=== PATIENT | female | born 1930 | race Caucasian/White ===

== ENCOUNTER 2018-01-18 18:13 | Inpatient (IN) | payer OTHER, MEDICARE ==
[~2018-01-18] VITALS: Ht 170.2 cm; Wt 71.6 kg
[~2018-01-18 18:13] MED LIST: ASPI81TA82 PO; ESTR1TAB PO; FISH1000 PO; GLUC500C56 PO; HYDR-2768 PO; ONDA1TAB16 PO; SYNT125T PO; TAB-TAB PO; TRAM50 PO; VIT250TA PO; VITA400C59 OR; VITA400C70 PO
[2018-01-18 18:32] VITALS: BP 160/80; PULSE 92; RESP 17; TEMP 99; O2SAT 96
[2018-01-18] MEDS ORDERED: VITA250C3 CHEW (18:49)
[2018-01-18] MEDS ORDERED: PRED20 PO (18:49)
[2018-01-18] MEDS ORDERED: ASPI81CH7 CHEW (18:49)
[2018-01-18] MEDS ORDERED: LISI10TA3 PO (18:49)
[2018-01-18] MEDS ORDERED: LEVO.15 PO (18:49)
[2018-01-18] MEDS ORDERED: SODIUM CHLORIDE 0.9% FLUSH 10 ML FLUSH IV FLUSH PRN ×2 (19:15→23:15)
[2018-01-18] MEDS ORDERED: diphenhydrAMINE HCL 50 MG/ML VIAL IV PUSH ONE (19:15)
[2018-01-18] MEDS ORDERED: methylPREDNISolone SOD SUCC 125 MG/2 ML VIAL IV PUSH ONE (19:15)
[2018-01-18] MEDS ORDERED: FAMOTIDINE 20 MG/2 ML VIAL IV PUSH ONE (19:15)
[2018-01-18 19:24] LABS: AUTOMATED NEUTROPHIL # 4.9 TH/MM3 (1.8-7.7); BASOPHIL % 0.6 % (0.0-2.0); EOSINOPHIL % 0.1 % (0.0-4.0); HEMATOCRIT 38.1 % (35.0-46.0); HEMOGLOBIN 12.5 GM/DL (11.6-15.3); LYMPHOCYTE # 0.5 TH/MM3 (1.0-4.8); MEAN CELL VOLUME 94.5 FL (80.0-100.0); MEAN CORPUSCULAR HGB CONC 32.8 % (32.0-36.0); MEAN PLATELET VOLUME 8.6 FL (7.0-11.0); MONO % 0.6 % (0.0-8.0); NEUT % 88.7 % (16.0-70.0); PLATELET COUNT 297 TH/MM3 (150-450); RED BLOOD COUNT 4.03 MIL/MM3 (4.00-5.30); RED CELL DISTRIBUTION WIDTH 11.5 % (11.6-17.2); WHITE BLOOD COUNT 5.4 TH/MM3 (4.0-11.0)
[2018-01-18 19:30] LABS: CHLORIDE 105 MEQ/L (98-107); SODIUM (NA) 138 MEQ/L (136-145)
[2018-01-18 19:33] LABS: CALCIUM 9.1 MG/DL (8.5-10.1)
[2018-01-18 19:34] LABS: ALBUMIN 3.2 GM/DL (3.4-5.0); BICARBONATE 23.1 MEQ/L (21.0-32.0); BLOOD UREA NITROGEN 30 MG/DL (7-18); GLUCOSE,RANDOM 253 MG/DL (74-106)
[2018-01-18 19:37] LABS: ALT (GPT) 16 U/L (10-53); AST (GOT) 15 U/L (15-37); GLOMERULAR FILTRATION RATE 43 ML/MIN (>89)
[2018-01-18 19:38] LABS: TOTAL BILIRUBIN ADULT 0.1 MG/DL (0.2-1.0)
[2018-01-18 19:39] LABS: TOTAL PROTEIN 7.5 GM/DL (6.4-8.2)
[2018-01-18 19:40] LABS: ALKALINE PHOSPHATASE 65 U/L (45-117)
[2018-01-18 20:09] VITALS: BP 198/96; PULSE 76; RESP 20; O2SAT 98; O2SAT 99
[2018-01-18] MEDS ORDERED: ALPRAZolam 0.25 MG TAB PO ONE (20:45)
--- NOTE | 2018-01-18 20:49 | PD ---
HPI Chief Complaint: Edema Time Seen by Provider: 18:58 Travel History International Travel<30 days: No Contact w/Intl Traveler<30days: No Traveled to known affect area: No History of Present Illness HPI This is an 87-year-old female who presents to the emergency department with swelling of her face that started this morning and has progressively been getting worse. Initially she only had some swelling on the right side of her face, constant, moderate severity. She received a dose of steroids at an urgent care this morning. It resolved initially but then it has increased and worsened and now it involves the left side of the face. She denies any changes in her voice, difficulty breathing or difficulty swallowing. The patient recently restarted her lisinopril 3 days ago. PFSH Past Medical History Cancer: No Cardiovascular Problems: No Diabetes: No Diminished Hearing: No Endocrine: Yes Gastrointestinal Disorders: Yes (DIVERTICULITIS ) Genitourinary: No Hepatitis: No Hiatal Hernia: No Hypertension: Yes Immune Disorder: No Implanted Vascular Access Dvce: Yes Medical other: No Musculoskeletal: No Neurologic: No Psychiatric: No Reproductive: No Respiratory: No Thyroid Disease: Yes (ORAL THYROID SUPPLEMENT ) Tetanus Vaccination: Unknown ?: Not Past Surgical History Abdominal Surgery: No AICD: No Appendectomy: Yes Body Medical Devices: BHUPINDER. BREAST (SALINE) Cardiac Surgery: No Section: Yes Cholecystectomy: Yes Ear Surgery: No Endocrine Surgery: No Eye Surgery: No Gynecologic Surgery: Yes ( BLADDER SUSP) Hysterectomy: Yes Joint Replacement: No Neurologic Surgery: No Oral Surgery: Yes (T & A) Pacemaker: No Thoracic Surgery: No Other Surgery: Yes Social History Alcohol Use: No Tobacco Use: No Substance Use: No Allergies-Medications (Allergen,Severity, Reaction): Coded Allergies: No Known Allergies (Unverified Adverse Reaction, Unknown, 01/18/18) Reported Meds & Prescriptions Reported Meds & Active Scripts Active Reported Prednisone 20 Mg Tab 20 Mg PO DIRECTED Take 60 MG daily x 4 days, then 40 MG x 4 days, then 20 MG daily x 4 days. Synthroid (Levothyroxine Sodium) 150 Mcg Tab 150 Mcg PO DAILY Lisinopril 10 Mg Tab 10 Mg PO DAILY Aspirin Children's (Aspirin) 81 Mg Chew 81 Mg CHEW DAILY Vitamin C (Ascorbic Acid) 250 Mg Chew 250 Mg CHEW DAILY Review of Systems Except as stated in HPI: all other systems reviewed are Neg Physical Exam Narrative GENERAL:Well appearing, no acute distress SKIN: Focused skin assessment warm and dry. HEAD: Atraumatic. Normocephalic. EYES: Pupils equal and round. No injection or drainage. ENT: Edema of the right and left lower face anterior to the mandible with edema of the tongue and some edema of the upper lip. Normal-appearing posterior pharynx, uvula is normal, normal voice NECK: Trachea midline. CARDIOVASCULAR: Regular rate and rhythm. No murmur appreciated. RESPIRATORY: Clear to auscultation. Breath sounds equal bilaterally. GASTROINTESTINAL: Abdomen soft, non-tender, nondistended. MUSCULOSKELETAL: No obvious deformities. NEUROLOGICAL: Awake and alert. No obvious cranial nerve deficits. Moving all extremities. PSYCHIATRIC: Appropriate mood and affect; insight and judgment normal. Data Data Last Documented VS Vital Signs Date Time Temp Pulse Resp B/P (MAP) Pulse Ox O2 Delivery O2 Flow Rate FiO2 01/18/18 18:40 17 96 Room Air 01/18/18 18:32 99.0 92 160/80 (106) Orders Orders Complete Blood Count With Diff (01/18/18 19:10) Comprehensive Metabolic Panel (01/18/18 19:10) ^ Insert Iv (01/18/18 19:10) Methylprednisolone So Succ Inj (Solumedr (01/18/18 19:15) Diphenhydramine Inj (Benadryl Inj) (01/18/18 19:15) Ecg Monitoring (01/18/18 19:10) Iv Access Insert/Monitor (01/18/18 19:10) Oximetry (01/18/18 19:10) Famotidine Inj (Pepcid Inj) (01/18/18 19:15) Sodium Chloride 0.9% Flush (Ns Flush) (01/18/18 19:15) Admit Order (Ed Use Only) (01/18/18 20:01) Labs Laboratory Tests Test 01/18/18 19:00 White Blood Count 5.4 TH/MM3 Red Blood Count 4.03 MIL/MM3 Hemoglobin 12.5 GM/DL Hematocrit 38.1 % Mean Corpuscular Volume 94.5 FL Mean Corpuscular Hemoglobin 31.0 PG Mean Corpuscular Hemoglobin Concent 32.8 % Red Cell Distribution Width 11.5 % Platelet Count 297 TH/MM3 Mean Platelet Volume 8.6 FL Neutrophils (%) (Auto) 88.7 % Lymphocytes (%) (Auto) 10.0 % Monocytes (%) (Auto) 0.6 % Eosinophils (%) (Auto) 0.1 % Basophils (%) (Auto) 0.6 % Neutrophils # (Auto) 4.9 TH/MM3 Lymphocytes # (Auto) 0.5 TH/MM3 Monocytes # (Auto) 0.0 TH/MM3 Eosinophils # (Auto) 0.0 TH/MM3 Basophils # (Auto) 0.0 TH/MM3 CBC Comment DIFF FINAL Differential Comment Blood Urea Nitrogen 30 MG/DL Creatinine 1.20 MG/DL Random Glucose 253 MG/DL Total Protein 7.5 GM/DL Albumin 3.2 GM/DL Calcium Level 9.1 MG/DL Alkaline Phosphatase 65 U/L Aspartate Amino Transf (AST/SGOT) 15 U/L Alanine Aminotransferase (ALT/SGPT) 16 U/L Total Bilirubin 0.1 MG/DL Sodium Level 138 MEQ/L Potassium Level 4.6 MEQ/L Chloride Level 105 MEQ/L Carbon Dioxide Level 23.1 MEQ/L Anion Gap 10 MEQ/L Estimat Glomerular Filtration Rate 43 ML/MIN MDM Medical Decision Making Medical Screen Exam Complete: Yes Emergency Medical Condition: Yes Interpretation(s) Mild renal insufficiency Hyperglycemia Differential Diagnosis Angioedema, anaphylaxis, allergic reaction Narrative Course This is an 87-year-old female who presents to the emergency department with facial swelling that has been worsening throughout the day. On exam she appears to have angioedema which is affecting her tongue and lower face. She has a normal voice and no obvious involvement of the posterior pharynx at this time. Patient was given IV Solu-Medrol and Benadryl. She will be admitted to the intensive care unit at the [facility] for close monitoring. I suspect the etiology is she recently restarted her lisinopril 4 days ago. Critical Care Narrative Aggregate critical care time was 35 minutes. Time to perform other separately billable procedures was not included in the critical care time. My time did not include minutes spent treating any other patients simultaneously or on activities that did not directly contribute to the patient's treatment. The services I provided to this patient were to treat and/or prevent clinically significant deterioration that could result in: Disability, I provided critical care services requiring my management, as noted below: Chart data review, documentation time, medication orders and management, vital sign assessments/reviewing monitor data, ordering and reviewing lab tests, ordering and interpreting/reviewing x-rays and diagnostic studies, care of the patient and discussion of the patient with the admitting physicians. 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
[2018-01-18 21:03] VITALS: BP 161/90; PULSE 82; RESP 20; O2SAT 95
[2018-01-18 21:45] VITALS: BP 170/81; PULSE 77; PULSE 78; RESP 26; TEMP 98.4; O2SAT 94
[2018-01-18] MEDS ORDERED: DIPH-201 PO (22:49)
[2018-01-18] MEDS: SODIUM CHLOR 0.9% 1000 ML INJ 1,000 ML IV SCH (23:06)
[2018-01-18] MEDS ORDERED: TEMAZEPAM 15 MG CAP PO PRN (23:15)
[2018-01-18] MEDS ORDERED: BISACODYL 10 MG SUPP RECTAL PRN (23:15)
[2018-01-18] MEDS: HEPARIN SODIUM - SQ 10,000 UNITS/ML VIAL SQ SCH (23:15)
[2018-01-18] MEDS ORDERED: ONDANSETRON HCL 4 MG/2 ML VIAL IV PUSH PRN (23:15)
[2018-01-18] MEDS ORDERED: SENNOSIDES 8.6 MG TAB PO PRN (23:15)
[2018-01-18] MEDS ORDERED: ACETAMINOPHEN 325 MG TAB PO PRN (23:15)
[2018-01-18] MEDS ORDERED: MAGNESIUM HYDROXIDE SUSP 30 ML CUP PO PRN (23:15)
[2018-01-18] MEDS ORDERED: LACTULOSE SYRUP 20 GM/30 ML CUP PO PRN (23:15)
[2018-01-18] MEDS ORDERED: NURSING INFORMATION XX SCH (23:15)
[2018-01-18] MEDS ORDERED: CHLORHEXIDINE GLUCONATE 2 % 1 PACK (2 CLOTHS)(extra cloths) TOPICAL PRN (23:15)
[2018-01-18] MEDS ORDERED: RESP: ALBUTEROL 2.5 MG/IPRATROPIUM 0.5 MG NEB (PRN) INH (23:15)
[2018-01-18] MEDS ORDERED: CHLORHEXIDINE GLUCONATE 2 % 1 PACK (2 CLOTHS) TOP PRN (23:15)
--- NOTE | 2018-01-18 23:26 | HHI.HP ---
HPI Service Critical Care Medicine Primary Care Physician Arron Brown MD Admission Diagnosis angioedema Diagnosis: Travel History International Travel<30 Days: No Contact w/Intl Traveler <30 Da: No Traveled to Known Affected Are: No History of Present Illness 87-year-old female presents with swelling of her face that started this morning and has progressively been getting worse. Initially she only had some swelling on the right side of her face, constant, moderate severity. She received a dose of steroids at an urgent care this morning. It resolved initially but then it has increased and worsened and now it involves the left side of the face. She denies any changes in her voice, difficulty breathing or difficulty swallowing. The patient recently restarted her lisinopril 3 days ago. Review of Systems Constitutional: DENIES: Diaphoretic episodes, Fatigue, Fever, Weight gain, Weight loss, Chills, Dizziness, Change in appetite, Night Sweats Endocrine: DENIES: Abnorml menstrual pattern, Heat/cold intolerance, Polydipsia , Polyuria, Polyphagia Eyes: DENIES: Blurred vision, Diplopia, Eye inflammation, Eye pain, Vision loss , Photosensitivity, Double Vision Ears, nose, mouth, throat: DENIES: Tinnitus, Hearing loss, Vertigo, Nasal discharge, Oral lesions, Throat pain, Hoarseness, Ear Pain, Running Nose, Epistaxis, Sinus Pain, Toothache, Odynophagia Respiratory: DENIES: Apneas, Cough, Snoring, Wheezing, Hemoptysis, Sputum production, Shortness of breath Cardiovascular: DENIES: Chest pain, Palpitations, Syncope, Dyspnea on Exertion , PND, Lower Extremity Edema, Orthopnea, Claudication Gastrointestinal: DENIES: Abdominal pain, Black stools, Bloody stools, Constipation, Diarrhea, Nausea, Vomiting, Difficulty Swallowing, Anorexia Genitourinary: DENIES: Abnormal vaginal bleeding, Dysmenorrhea, Dyspareunia, Sexual dysfunction, Urinary frequency, Urinary incontinence, Urgency, Hematuria , Dysuria, Nocturia, Vaginal discharge Musculoskeletal: DENIES: Joint pain, Muscle aches, Stiffness, Joint Swelling, Back pain, Neck pain Integumentary: DENIES: Abnormal pigmentation, Pruritus, Rash, Nail changes, Breast masses, Breast skin changes, Nipple discharge Hematologic/lymphatic: DENIES: Bruising, Lymphadenopathy Immunologic/allergic: DENIES: Eczema, Urticaria Neurologic: DENIES: Abnormal gait, Headache, Localized weakness, Paresthesias, Seizures, Speech Problems, Tremor, Poor Balance Psychiatric: DENIES: Anxiety, Confusion, Mood changes, Depression, Hallucinations, Agitation, Suicidal Ideation, Homicidal Ideation, Delusions Past Family Social History Allergies: Coded Allergies: lisinopril (Verified Allergy, Severe, ANGIOEDEMA, 01/18/18) Past Medical History Cyst on ovary Diverticulitis Irregular heartbeat Osteoporosis Rectal prolapse Hypothyroidism Pelvic mass Past Surgical History Appendectomy Tonsillectomy Colonoscopy 2013 Bladder surgery 1997 Hemorrhoid surgery 1977 Hysterectomy in 1973 section in 1960 Reported Medications Reported Meds & Active Scripts Active Reported Sleep-Aid (Diphenhydramine HCl) 25 Mg Capsule 1 Tab PO HS Prednisone 20 Mg Tab 20 Mg PO DIRECTED Take 60 MG daily x 4 days, then 40 MG x 4 days, then 20 MG daily x 4 days. Synthroid (Levothyroxine Sodium) 150 Mcg Tab 150 Mcg PO DAILY Aspirin Children's (Aspirin) 81 Mg Chew 81 Mg CHEW DAILY Vitamin C (Ascorbic Acid) 250 Mg Chew 250 Mg CHEW DAILY Active Ordered Medications Current Medications Medications (Trade) Dose Ordered Sig/Kendrick Route PRN Reason Start Time Stop Time Status Last Admin Dose Admin Sodium Chloride (NS Flush) 2 ml UNSCH PRN IV FLUSH FLUSH AFTER USING IV ACCESS 01/18/18 19:15 Miscellaneous Information ([facility] Nursing Information) Patient in critical care unit? Ass... [id number] .XX 01/18/18 23:15 Chlorhexidine Gluconate (Chlorhexidine 2% Cloth) 3 pack DAILY@04 TOPICAL 01/19/18 04:00 01/23/18 04:01 Chlorhexidine Gluconate (Chlorhexidine 2% Cloth) 3 pack UNSCH PRN TOPICAL HYGIENIC CARE 01/18/18 23:15 01/23/18 23:04 Aspirin (Aspirin Chew) 81 mg DAILY CHEW 01/19/18 09:00 Levothyroxine Sodium (Synthroid) 150 mcg DAILY@0700 PO 01/19/18 07:00 Prednisone (Deltasone) 20 mg DAILY PO 01/19/18 09:00 Ascorbic Acid (Vitamin C) 250 mg DAILY PO 01/19/18 09:00 Non-Formulary Medication 1 tab HS PO 01/19/18 21:00 UNV Family History No family history significant of early coronary artery disease or malignancy Social History Never smoked, alcohol socially, no illicit drug abuse Physical Exam Vital Signs Vital Signs Date Time Temp Pulse Resp B/P (MAP) Pulse Ox O2 Delivery O2 Flow Rate FiO2 01/18/18 21:45 Nasal Cannula 2.00 01/18/18 21:45 77 01/18/18 21:45 98.4 78 26 170/81 (110) 94 01/18/18 21:09 01/18/18 21:03 82 20 161/90 (113) 95 Room Air 01/18/18 20:09 76 20 198/96 (130) 99 Room Air 01/18/18 20:09 98 Room Air 01/18/18 18:40 17 96 Room Air 01/18/18 18:32 99.0 92 17 160/80 (106) 96 Physical Exam GENERAL: Well-nourished, well-developed patient. SKIN: Warm and dry. HEAD: Normocephalic. EYES: No scleral icterus. No injection or drainage. NECK: Supple, trachea midline. No JVD or lymphadenopathy. CARDIOVASCULAR: Regular rate and rhythm without murmurs, gallops, or rubs. RESPIRATORY: Breath sounds equal bilaterally. No accessory muscle use. GASTROINTESTINAL: Abdomen soft, non-tender, nondistended. MUSCULOSKELETAL: No cyanosis, or edema. BACK: Nontender without obvious deformity. NEURO EXAM: GCS: 15 Mental Status: The patient is alert and oriented to person, place, and time with normal speech. Cranial Nerves: Visual acuity intact bilaterally. Visual francisco normal in all quadrants. Pupils are round, reactive to light. Extraocular movements are intact without ptosis. Hearing is normal bilaterally. Voice is normal. Tongue protrudes midline and moves symmetrically. Reflexes: Biceps, patellar, and Achilles are 2/4 bilaterally. No clonus. Sensation: Sensation is intact bilaterally to pain and light touch. Two-point discrimination is intact. Motor: Good muscle tone. Strength is 5/5 bilaterally. Cerebellar: Amnisb-st-usof and wwuf-[id number] test normal bilaterally. Laboratory Laboratory Tests Test 01/18/18 19:00 01/18/18 22:05 White Blood Count 5.4 Red Blood Count 4.03 Hemoglobin 12.5 Hematocrit 38.1 Mean Corpuscular Volume 94.5 Mean Corpuscular Hemoglobin 31.0 Mean Corpuscular Hemoglobin Concent 32.8 Red Cell Distribution Width 11.5 Platelet Count 297 Mean Platelet Volume 8.6 Neutrophils (%) (Auto) 88.7 Lymphocytes (%) (Auto) 10.0 Monocytes (%) (Auto) 0.6 Eosinophils (%) (Auto) 0.1 Basophils (%) (Auto) 0.6 Neutrophils # (Auto) 4.9 Lymphocytes # (Auto) 0.5 Monocytes # (Auto) 0.0 Eosinophils # (Auto) 0.0 Basophils # (Auto) 0.0 CBC Comment DIFF FINAL Differential Comment Blood Urea Nitrogen 30 Creatinine 1.20 Random Glucose 253 Total Protein 7.5 Albumin 3.2 Calcium Level 9.1 Alkaline Phosphatase 65 Aspartate Amino Transf (AST/SGOT) 15 Alanine Aminotransferase (ALT/SGPT) 16 Total Bilirubin 0.1 Sodium Level 138 Potassium Level 4.6 Chloride Level 105 Carbon Dioxide Level 23.1 Anion Gap 10 Estimat Glomerular Filtration Rate 43 Result Diagram: 01/18/18189901/18/181899 Caprini VTE Risk Assessment Caprini VTE Risk Assessment: Mod/High Risk (score >= 2) Caprini Risk Assessment Model Point Value = 1 Point Value = 2 Point Value = 3 Point Value = 5 Age 41-60 Minor surgery BMI > 25 kg/m2 Swollen legs Varicose veins or History of unexplained or recurrent spontaneous Oral contraceptives or hormone replacement Sepsis (< 1 month) Serious lung disease, including pneumonia (< 1 month) Abnormal pulmonary function Acute myocardial infarction Congestive heart failure (< 1 month) History of inflammatory bowel disease Medical patient at bed rest Age 61-74 Arthroscopic surgery Major open surgery (> 45 min) Laparoscopic surgery (> 45 min) Malignancy Confined to bed (> 72 hours) Immobilizing plaster cast Central venous access Age >= 75 History of VTE Family history of VTE Factor V Leiden Prothrombin [id number] Lupus anticoagulant Anticardiolipin antibodies Elevated serum homocysteine Heparin-induced thrombocytopenia Other congenital or acquired thrombophilia Stroke (< 1 month) Elective arthroplasty Hip, pelvis, or leg fracture Acute spinal cord injury (< 1 month) Prophylaxis Regimen Total Risk Factor Score Risk Level Prophylaxis Regimen 0-1 Low Early ambulation 2 Moderate Order ONE of the following: *Sequential Compression Device (SCD) *Heparin 5000 units SQ BID 3-4 Higher Order ONE of the following medications: *Heparin 5000 units SQ TID *Enoxaparin/Lovenox 40 mg SQ daily (WT < 150 kg, CrCl > 30 mL/min) *Enoxaparin/Lovenox 30 mg SQ daily (WT < 150 kg, CrCl > 10-29 mL/min) *Enoxaparin/Lovenox 30 mg SQ BID (WT < 150 kg, CrCl > 30 mL/min) AND/OR *Sequential Compression Device (SCD) 5 or more Highest Order ONE of the following medications: *Heparin 5000 units SQ TID (Preferred with Epidurals) *Enoxaparin/Lovenox 40 mg SQ daily (WT < 150 kg, CrCl > 30 mL/min) *Enoxaparin/Lovenox 30 mg SQ daily (WT < 150 kg, CrCl > 10-29 mL/min) *Enoxaparin/Lovenox 30 mg SQ BID (WT < 150 kg, CrCl > 30 mL/min) AND *Sequential Compression Device (SCD) Assessment and Plan Assessment and Plan Angioedema -DC lisinopril -IV steroids -H1 H2 antagonists -Monitor in the ICU for an airway Hypertension -Labetalol and clonidine as needed to keep SBP less than 160 Hypothyroidism -Continue Synthroid DVT GI prophylaxis -Osvaldo's and SCDs -Subcu heparin -Pepcid Critical Care: The total critical care time was 35 minutes. Time to perform other separately billable procedures was not included in the critical care time. Julio Cesar Benoit MD January 18, 2018 23:26
[2018-01-18] MEDS ORDERED: LABETALOL HCL 100 MG/20 ML VIAL IV PUSH PRN (23:30)
[2018-01-18] MEDS: diphenhydrAMINE HCL 50 MG/ML VIAL IM SCH (23:30)
[2018-01-18] MEDS ORDERED: cloNIDine HCL 0.1 MG TAB PO PRN (23:30)
[2018-01-18] MEDS: DEXAMETHASONE SOD PHOS 4 MG/ML VIAL IV PUSH SCH (23:39)
[2018-01-19] VITALS (16 sets, daily range): BP systolic 119–172; BP diastolic 58–89; PULSE 57–88; RESP 16–21; TEMP 97.1–98.6; O2SAT 95–96
[2018-01-19] MEDS: diphenhydrAMINE HCL 50 MG/ML VIAL IM SCH ×3 (03:30→11:27)
[2018-01-19] MEDS: CHLORHEXIDINE GLUCONATE 2 % 1 PACK (2 CLOTHS) TOP SCH (03:30)
[2018-01-19] MEDS: CHLORHEXIDINE GLUCONATE 2 % 1 PACK (2 CLOTHS)(taper/protocol) TOPICAL SCH (03:31)
[2018-01-19 04:21] LABS: AUTOMATED NEUTROPHIL # 6.6 TH/MM3 (1.8-7.7); HEMATOCRIT 35.3 % (35.0-46.0); LYMPH % 11.4 % (9.0-44.0); LYMPHOCYTE # 0.9 TH/MM3 (1.0-4.8); MEAN CELL VOLUME 94.6 FL (80.0-100.0); MEAN CORPUSCULAR HEMOGLOBIN 32.3 PG (27.0-34.0); MEAN CORPUSCULAR HGB CONC 34.1 % (32.0-36.0); MEAN PLATELET VOLUME 8.5 FL (7.0-11.0); MONO % 1.2 % (0.0-8.0); MONOCYTE # 0.1 TH/MM3 (0-0.9); NEUT % 87.4 % (16.0-70.0); PLATELET COUNT 259 TH/MM3 (150-450); RED BLOOD COUNT 3.73 MIL/MM3 (4.00-5.30); RED CELL DISTRIBUTION WIDTH 12.7 % (11.6-17.2); WHITE BLOOD COUNT 7.5 TH/MM3 (4.0-11.0)
[2018-01-19 04:50] LABS: ALBUMIN 2.9 GM/DL (3.4-5.0); AST (GOT) 16 U/L (15-37); BICARBONATE 24.5 MEQ/L (21.0-32.0); BLOOD UREA NITROGEN 30 MG/DL (7-18); CALCIUM 8.4 MG/DL (8.5-10.1); CHLORIDE 108 MEQ/L (98-107); CREATININE 1.05 MG/DL (0.50-1.00); GLOMERULAR FILTRATION RATE 50 ML/MIN (>89); GLUCOSE,RANDOM 165 MG/DL (74-106); SODIUM (NA) 141 MEQ/L (136-145)
[2018-01-19 04:53] LABS: PROTHROMBIN TIME - PATIENT 10.1 SEC (9.8-11.6)
[2018-01-19 04:54] LABS: ALKALINE PHOSPHATASE 56 U/L (45-117); ALT (GPT) 16 U/L (10-53); PHOSPHORUS 3.4 MG/DL (2.5-4.9); TOTAL BILIRUBIN ADULT 0.2 MG/DL (0.2-1.0); TOTAL PROTEIN 6.7 GM/DL (6.4-8.2)
[2018-01-19] MEDS: DEXAMETHASONE SOD PHOS 4 MG/ML VIAL IV PUSH SCH ×4 (06:00→23:42)
[2018-01-19] MEDS: LEVOTHYROXINE SODIUM 150 MCG TAB PO SCH (06:10)
[2018-01-19] MEDS: SODIUM CHLORIDE 0.9% FLUSH 10 ML FLUSH IV FLUSH SCH ×2 (09:00→20:38)
[2018-01-19] MEDS ORDERED: predniSONE 20 MG TAB PO SCH (09:00)
[2018-01-19] MEDS ORDERED: FAMOTIDINE 20 MG/2 ML VIAL IV PUSH SCH ×2 (09:00)
[2018-01-19] MEDS: HEPARIN SODIUM - SQ 10,000 UNITS/ML VIAL SQ SCH ×3 (09:55→23:45)
[2018-01-19] MEDS: ASPIRIN 81 MG CHEW TAB CHEW SCH (09:56)
[2018-01-19] MEDS: DOCUSATE SODIUM 50 MG/SENNA 8.6 MG TAB PO SCH ×2 (09:56→20:37)
[2018-01-19] MEDS: ASCORBIC ACID 500 MG TAB PO SCH (09:56)
[2018-01-19] MEDS: SODIUM CHLOR 0.9% 1000 ML INJ 1,000 ML IV SCH ×2 (11:01→23:41)
--- NOTE | 2018-01-19 13:53 | HHI.PR ---
Subjective Remarks Facial swelling and lip swelling better, almost at baseline. No shortness of breath or wheezing. No stridor. Objective Vitals Vital Signs Date Time Temp Pulse Resp B/P (MAP) Pulse Ox O2 Delivery O2 Flow Rate FiO2 01/19/18 12:00 79 01/19/18 11:00 98.6 68 20 119/60 (79) 96 01/19/18 10:00 79 01/19/18 08:00 98.6 81 20 162/81 (108) 96 01/19/18 08:00 79 01/19/18 06:00 75 01/19/18 04:15 96 Nasal Cannula 2.00 01/19/18 04:00 72 01/19/18 03:00 82 149/73 (98) 01/19/18 02:00 83 01/19/18 01:00 76 153/74 (100) 01/19/18 00:00 98.6 88 21 172/89 (116) 96 01/19/18 00:00 82 01/18/18 21:45 Nasal Cannula 2.00 01/18/18 21:45 77 01/18/18 21:45 98.4 78 26 170/81 (110) 94 01/18/18 21:09 01/18/18 21:03 82 20 161/90 (113) 95 Room Air 01/18/18 20:09 76 20 198/96 (130) 99 Room Air 01/18/18 20:09 98 Room Air 01/18/18 18:40 17 96 Room Air 01/18/18 18:32 99.0 92 17 160/80 (106) 96 I/O 01/18/18 01/18/18 01/18/18 01/19/18 01/19/18 01/19/18 07:00 15:00 23:00 07:00 15:00 23:00 Intake Total 546 ml Balance 546 ml Intake Oral 0 ml IV Total 546 ml # Voids 3 # Bowel Movements 2 Result Diagram: 01/19/18 0335 01/19/18 0335 Objective Remarks GENERAL: Well-nourished, well-developed patient. Still with mild facial swelling and lip swelling. Speech is normal. NECK: No stridor. CARDIOVASCULAR: Regular rate and rhythm without murmurs, gallops, or rubs. RESPIRATORY: Breath sounds equal bilaterally. No accessory muscle use. GASTROINTESTINAL: Abdomen soft, non-tender, nondistended. MUSCULOSKELETAL: No cyanosis, or edema. Alert awake and oriented 3, no focal deficits. A/P Assessment and Plan This is an 87-year-old female who presented with facial edema likely angioedema from lisinopril Angioedema -DC lisinopril, continue steroids, continue H2 and H1 antagonist, switch everything to oral. May transfer to [facility]. Hypertension -Start Norvasc tomorrow if with increasing blood pressure. Hypothyroidism -Continue Synthroid DVT prophylaxis: Heparin Discharge Planning Possible discharge to home in the morning. Shara Hollingsworth MD January 19, 2018 13:53
[2018-01-19] MEDS: diphenhydrAMINE HCL 50 MG CAP PO SCH ×3 (15:00→20:37)
[2018-01-19] MEDS ORDERED: PILL SPLITTER OTHER PRN (15:15)
[2018-01-19] MEDS: FAMOTIDINE 20 MG TAB PO SCH (20:37)
[2018-01-19] MEDS ORDERED: diphenhydrAMINE HCL 25 MG CAP PO SCH (21:00)
[2018-01-20] VITALS: BP 144/74; PULSE 74; RESP 18; TEMP 97.4; O2SAT 97
[2018-01-20] MEDS: diphenhydrAMINE HCL 50 MG CAP PO SCH ×2 (03:46→09:10)
[2018-01-20 04:00] VITALS: BP 162/79; PULSE 63; RESP 20; TEMP 97.5; O2SAT 96
[2018-01-20] MEDS: CHLORHEXIDINE GLUCONATE 2 % 1 PACK (2 CLOTHS)(taper/protocol) TOPICAL SCH (04:00)
[2018-01-20] MEDS: CHLORHEXIDINE GLUCONATE 2 % 1 PACK (2 CLOTHS) TOP SCH (04:00)
[2018-01-20] MEDS: DEXAMETHASONE SOD PHOS 4 MG/ML VIAL IV PUSH SCH (05:53)
[2018-01-20] MEDS: LEVOTHYROXINE SODIUM 150 MCG TAB PO SCH (05:54)
[2018-01-20 06:19] LABS: BICARBONATE 25.7 MEQ/L (21.0-32.0); CALCIUM 8.1 MG/DL (8.5-10.1); CREATININE 0.97 MG/DL (0.50-1.00)
[2018-01-20] MEDS: HEPARIN SODIUM - SQ 10,000 UNITS/ML VIAL SQ SCH (07:35)
[2018-01-20 08:00] VITALS: BP 151/72; PULSE 76; RESP 22; TEMP 97.5; O2SAT 90
[2018-01-20] MEDS: SODIUM CHLORIDE 0.9% FLUSH 10 ML FLUSH IV FLUSH SCH (09:00)
[2018-01-20] MEDS: DOCUSATE SODIUM 50 MG/SENNA 8.6 MG TAB PO SCH (09:00)
[2018-01-20] MEDS ORDERED: predniSONE 20 MG TAB PO SCH (09:00)
[2018-01-20] MEDS ORDERED: amLODIPine BESYLATE 5 MG TAB PO SCH (09:00)
[2018-01-20] MEDS: FAMOTIDINE 20 MG TAB PO SCH (09:00)
[2018-01-20] MEDS: ASCORBIC ACID 500 MG TAB PO SCH (09:10)
[2018-01-20] MEDS: ASPIRIN 81 MG CHEW TAB CHEW SCH (09:10)
[2018-01-20] MEDS: SODIUM CHLOR 0.9% 1000 ML INJ 1,000 ML IV SCH (10:51)
[2018-01-20 12:00] VITALS: BP 132/63; PULSE 77; RESP 20; TEMP 97.2; O2SAT 99
--- NOTE | 2018-01-20 12:01 | HHI.PR ---
Subjective Remarks Follow-up angioedema. States she is doing okay denies throat tightness and shortness of breath. Currently on room air Objective Vitals Vital Signs Date Time Temp Pulse Resp B/P (MAP) Pulse Ox O2 Delivery O2 Flow Rate FiO2 01/20/18 08:00 97.5 76 22 151/72 (98) 90 01/20/18 07:34 Nasal Cannula 2.00 01/20/18 04:00 97.5 63 20 162/79 (106) 96 01/20/18 00:00 97.4 74 18 144/74 (97) 97 01/19/18 20:37 96 Nasal Cannula 2.00 01/19/18 20:00 97.1 70 16 124/58 (80) 95 01/19/18 20:00 95 Nasal Cannula 2.00 01/19/18 16:00 58 01/19/18 15:00 98.6 57 20 148/64 (92) 96 01/19/18 14:00 79 I/O 01/19/18 01/19/18 01/19/18 01/20/18 01/20/18 01/20/18 07:00 15:00 23:00 07:00 15:00 23:00 Intake Total 546 ml 1336 ml Balance 546 ml 1336 ml Intake Oral 0 ml 240 ml IV Total 546 ml 1096 ml # Voids 3 4 # Bowel Movements 2 0 Result Diagram: 01/19/18 0335 01/20/18 0520 Objective Remarks GENERAL: Well-nourished, well-developed patient. Improved facial swelling and lip swelling. Speech is normal. NECK: No stridor. CARDIOVASCULAR: Regular rate and rhythm without murmurs, gallops, or rubs. RESPIRATORY: Breath sounds equal bilaterally. No accessory muscle use. GASTROINTESTINAL: Abdomen soft, non-tender, nondistended. MUSCULOSKELETAL: No cyanosis, or edema. Alert awake and oriented 3, no focal deficits. 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 Resolving -DC lisinopril, continue steroids, Pepcid and prn benadryl Hypertension -Stable on Norvasc Hypothyroidism -Continue Synthroid DVT prophylaxis: Heparin Discharge Planning Discharge patient to home Condition on discharge: Improved Regular Diet as tolerated Ad Agata activity Rx written: Norvasc and pepcid Follow-up with primary care physician Floyd Almanzar MD January 20, 2018 12:01
[2018-01-20] MEDS ORDERED: AMLO5 PO (12:24)
[2018-01-20] MEDS ORDERED: FAMO20TA2 PO (12:24)
[2018-01-20] MEDS ORDERED: DIPH50CA PO (12:24)
--- NOTE | 2018-01-20 12:24 | HHI.DCPOC ---
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 Avoid second hand smoke Call the 24-hour hour crisis hotline for domestic abuse at Floyd Almanzar MD January 20, 2018 12:24
== END 2018-01-20 15:04 | disposition home or self-care (01) | DRG 916 ==
LOC: PHEFT 18:13 → PHEDA 20:03 → HIMW 21:40 → N06A 01-19 17:01
PROVIDERS: ADMIT Internal Medicine; ATTEND Internal Medicine
DX: T78.3XXA Angioneurotic edema, initial encounter (principal); T46.4X5A Adverse effect of angiotensin-converting-enzyme inhibitors, initial encounter; I10 Essential (primary) hypertension; E07.9 Disorder of thyroid, unspecified; M81.0 Age-related osteoporosis without current pathological fracture; E03.9 Hypothyroidism, unspecified; Z79.82 Long term (current) use of aspirin
CPT/HCPCS: 80048; 80053; 83735; 84100; 85025; 85610; 85730; 87641; 94618; 96374; 96375; J1100; J1200; J1644; J2930; J7030; J7512; Q0163

== ENCOUNTER 2018-01-31 13:55 | Emergency (ER) | payer MEDICARE, OTHER ==
[~2018-01-31] VITALS: Ht 170.2 cm; Wt 66.0 kg
[~2018-01-31 13:55] MED LIST changes: +AMLO5 PO; +ASPI81CH7 CHEW; -ASPI81TA82 PO; +DIPH-201 PO; +DIPH50CA PO; -ESTR1TAB PO; +FAMO20TA2 PO; -FISH1000 PO; -GLUC500C56 PO; -HYDR-2768 PO; +LEVO.15 PO; -ONDA1TAB16 PO; +PRED20 PO; -SYNT125T PO; -TAB-TAB PO; -TRAM50 PO; -VIT250TA PO; +VITA250C3 CHEW; -VITA400C59 OR; -VITA400C70 PO
[2018-01-31 14:02] VITALS: BP 168/83; PULSE 92; RESP 18; TEMP 98.1; O2SAT 98
[2018-01-31] MEDS ORDERED: HYDR25TA5 PO (14:15)
--- NOTE | 2018-01-31 14:37 | PD ---
HPI Chief Complaint: Dizziness Time Seen by Provider: 14:18 Travel History International Travel<30 days: No Contact w/Intl Traveler<30days: No Traveled to known affect area: No History of Present Illness HPI This 87-year-old female says she is feels like she has had a cold for the past week or so. She stands up she gets lightheaded. She has been coughing and bringing up some phlegm. She does not smoke. She has no history of myocardial infarction or stroke. She was admitted to the hospital at the end of December with angioedema which was thought secondary to her lisinopril. She has been off the lisinopril since then. She says that she has not been feeling well since she left the hospital. She is not aware of fever or chills. She is not having chest pain. She has not had much of an appetite and has not been eating well. She said she has had a 7 pound weight loss over that period of time. PFSH Past Medical History Cancer: No Cardiovascular Problems: Yes Diabetes: No Diminished Hearing: No Diverticulitis: Yes Gastrointestinal Disorders: Yes (DIVERTICULITIS ) Genitourinary: No Hepatitis: No Hiatal Hernia: No Hypertension: Yes Immune Disorder: No Implanted Vascular Access Dvce: Yes Musculoskeletal: Yes Neurologic: No Psychiatric: No Reproductive: No Respiratory: No Thyroid Disease: Yes ?: Not Past Surgical History Abdominal Surgery: No AICD: No Appendectomy: Yes Body Medical Devices: BHUPINDER. BREAST (SALINE) Cardiac Surgery: No Section: Yes Cholecystectomy: Yes Ear Surgery: No Endocrine Surgery: No Eye Surgery: No Gynecologic Surgery: Yes ( BLADDER SUSP) Hysterectomy: Yes Joint Replacement: No Neurologic Surgery: No Oral Surgery: Yes (T & A) Pacemaker: No Thoracic Surgery: No Other Surgery: Yes Social History Alcohol Use: No ("NOT LATELY") Tobacco Use: No Substance Use: No Allergies-Medications (Allergen,Severity, Reaction): Coded Allergies: lisinopril (Verified Allergy, Severe, ANGIOEDEMA, 01/31/18) Reported Meds & Prescriptions Reported Meds & Active Scripts Active Reported Hydrochlorothiazide 25 Mg Tab 25 Mg PO DAILY Synthroid (Levothyroxine Sodium) 150 Mcg Tab 150 Mcg PO DAILY Aspirin Children's (Aspirin) 81 Mg Chew 81 Mg CHEW DAILY Vitamin C (Ascorbic Acid) 250 Mg Chew 250 Mg CHEW DAILY Review of Systems General / Constitutional: No: Fever, Chills Eyes: No: Diploplia HENT: Positive: Lightheadedness, No: Headaches Cardiovascular: No: Chest Pain or Discomfort, Palpitations Respiratory: Positive: Cough, No: Shortness of Breath Gastrointestinal: No: Nausea, Vomiting Genitourinary: No: Urgency, Frequency Musculoskeletal: No: Myalgias, Arthralgias Skin: No Rash, No Itching Neurologic: Positive: Weakness Endocrine: No: Heat Intolerance Hematologic/Lymphatic: No: Easy Bruising Physical Exam Narrative GENERAL: Well-developed female SKIN: Focused skin assessment warm/dry. HEAD: Atraumatic. Normocephalic. EYES: Pupils equal and round. No scleral icterus. No injection or drainage. ENT: No nasal bleeding or discharge. Mucous membranes pink and moist. NECK: Trachea midline. No JVD. CARDIOVASCULAR: Irregular rate and rhythm. No murmur appreciated. RESPIRATORY: No accessory muscle use. Clear to auscultation. Breath sounds equal bilaterally. GASTROINTESTINAL: Abdomen soft, non-tender, nondistended. Hepatic and splenic margins not palpable. MUSCULOSKELETAL: No obvious deformities. No clubbing. No cyanosis. No edema. NEUROLOGICAL: Awake and alert. No obvious cranial nerve deficits. Motor grossly within normal limits. Normal speech. PSYCHIATRIC: Appropriate mood and affect; insight and judgment normal. Data Data Last Documented VS Vital Signs Date Time Temp Pulse Resp B/P (MAP) Pulse Ox O2 Delivery O2 Flow Rate FiO2 01/31/18 14:02 98.1 92 18 168/83 (111) 98 Orders Orders Electrocardiogram (01/31/18 14:33) Complete Blood Count With Diff (01/31/18 14:33) Comprehensive Metabolic Panel (01/31/18 14:33) Troponin I (01/31/18 14:33) Urinalysis - C+S If Indicated (01/31/18 14:33) Magnesium (Mg) (01/31/18 14:33) Chest, Pa & Lat (01/31/18 14:33) Sodium Chlor 0.9% 1000 Ml Inj (Ns 1000 M (01/31/18 14:45) Orthostatic Vital Signs (01/31/18 14:33) MDM Medical Decision Making Medical Screen Exam Complete: Yes Emergency Medical Condition: Yes Medical Record Reviewed: Yes Differential Diagnosis Differential includes dysrhythmia, dehydration, viral illness, pneumonia Narrative Course Lab work, EKG and chest x-ray have been ordered. Disposition determined by oncoming physician Sudhakar Basilio MD Jan 31, 2018 14:37
[2018-01-31] MEDS ORDERED: SODIUM CHLOR 0.9% 1000 ML INJ 1,000 ML IV SCH (14:45)
--- NOTE | 2018-01-31 14:57 | RADRPT ---
EXAM DATE: 01/31/2018 2:47 PM EDT AGE/SEX: 87 years / Female INDICATIONS: Cough, weakness, dizziness. CLINICAL DATA: This is the patient's initial encounter. Patient reports that signs and symptoms have been present for 1 week and indicates a pain score of 2/10. MEDICAL/SURGICAL HISTORY: None. None. COMPARISON: [facility] [place], CHEST PA & LAT, 11/10/2010. . FINDINGS: PA and lateral views of the chest demonstrate a top normal heart size. No pulmonary vascular engorgem ent. Clear lungs. No effusions. Bony structures are unremarkable. CONCLUSION: No acute cardiopulmonary disease. Electronically signed by: Maurisio Restrepo MD 01/31/2018 2:56 PM EDT
[2018-01-31 15:09] VITALS: BP_SYST 124; BP_SYST 133; BP_SYST 178; BP_DIAS 77; BP_DIAS 84; BP_DIAS 88; RESP 16
[2018-01-31 15:10] VITALS: BP 178/84; PULSE 70; RESP 16; O2SAT 95
[2018-01-31 15:12] LABS: AUTOMATED NEUTROPHIL # 5.7 TH/MM3 (1.8-7.7); BASOPHIL # 0.1 TH/MM3 (0-0.2); BASOPHIL % 1.5 % (0.0-2.0); EOSINOPHIL # 0.1 TH/MM3 (0-0.4); EOSINOPHIL % 1.2 % (0.0-4.0); HEMATOCRIT 42.2 % (35.0-46.0); LYMPH % 23.5 % (9.0-44.0); MEAN CELL VOLUME 96.1 FL (80.0-100.0); MEAN CORPUSCULAR HEMOGLOBIN 31.9 PG (27.0-34.0); MEAN CORPUSCULAR HGB CONC 33.2 % (32.0-36.0); MEAN PLATELET VOLUME 8.2 FL (7.0-11.0); MONO % 9.2 % (0.0-8.0); MONOCYTE # 0.8 TH/MM3 (0-0.9); NEUT % 64.6 % (16.0-70.0); PLATELET COUNT 227 TH/MM3 (150-450); RED BLOOD COUNT 4.39 MIL/MM3 (4.00-5.30); RED CELL DISTRIBUTION WIDTH 11.9 % (11.6-17.2); WHITE BLOOD COUNT 8.7 TH/MM3 (4.0-11.0)
[2018-01-31 15:20] LABS: CHLORIDE 89 MEQ/L (98-107); SODIUM (NA) 128 MEQ/L (136-145)
[2018-01-31 15:23] LABS: CALCIUM 8.8 MG/DL (8.5-10.1)
[2018-01-31 15:24] LABS: ALBUMIN 3.7 GM/DL (3.4-5.0); BICARBONATE 30.6 MEQ/L (21.0-32.0); BLOOD UREA NITROGEN 26 MG/DL (7-18); GLUCOSE,RANDOM 108 MG/DL (74-106); MAGNESIUM 1.8 MG/DL (1.5-2.5)
[2018-01-31 15:27] LABS: ALT (GPT) 21 U/L (10-53); AST (GOT) 21 U/L (15-37); GLOMERULAR FILTRATION RATE 43 ML/MIN (>89)
[2018-01-31 15:28] LABS: TOTAL BILIRUBIN ADULT 0.5 MG/DL (0.2-1.0); TOTAL PROTEIN 7.5 GM/DL (6.4-8.2)
[2018-01-31 15:30] LABS: ALKALINE PHOSPHATASE 72 U/L (45-117)
[2018-01-31 15:32] LABS: TROPONIN I LESS THAN 0.02 NG/ML (0.02-0.05)
[2018-01-31 15:42] LABS: BILIRUBIN, URINE NEG (NEG); BLOOD, URINE TRACE (NEG); GLUCOSE,URINE NEG (NEG); KETONE, URINE NEG (NEG); NITRITE,URINE NEG (NEG); URINE COLOR YELLOW (YELLW/STRAW); URINE LEUKOCYTE ESTERASE NEG (NEG)
[2018-01-31] MEDS ORDERED: METO-309 PO (15:59)
[2018-01-31] MEDS ORDERED: POTASSIUM CHLORIDE 25 MEQ EFFERVESCENT TAB PO ONE (16:00)
--- NOTE | 2018-01-31 16:22 | PD ---
Data Data Last Documented VS Vital Signs Date Time Temp Pulse Resp B/P (MAP) Pulse Ox O2 Delivery O2 Flow Rate FiO2 01/31/18 15:10 70 16 178/84 (115) 95 Room Air 01/31/18 14:02 98.1 Orders Orders Electrocardiogram (01/31/18 14:33) Complete Blood Count With Diff (01/31/18 14:33) Comprehensive Metabolic Panel (01/31/18 14:33) Troponin I (01/31/18 14:33) Urinalysis - C+S If Indicated (01/31/18 14:33) Magnesium (Mg) (01/31/18 14:33) Chest, Pa & Lat (01/31/18 14:33) Sodium Chlor 0.9% 1000 Ml Inj (Ns 1000 M (01/31/18 14:45) Orthostatic Vital Signs (01/31/18 14:33) B-Type Natriuretic Peptide (01/31/18 14:56) Thyroid Stimulating Hormone (01/31/18 14:56) Potassium Chloride Eff (K-Lyte Cl Eff) (01/31/18 16:00) Labs Laboratory Tests Test 01/31/18 15:00 01/31/18 15:33 White Blood Count 8.7 TH/MM3 Red Blood Count 4.39 MIL/MM3 Hemoglobin 14.0 GM/DL Hematocrit 42.2 % Mean Corpuscular Volume 96.1 FL Mean Corpuscular Hemoglobin 31.9 PG Mean Corpuscular Hemoglobin Concent 33.2 % Red Cell Distribution Width 11.9 % Platelet Count 227 TH/MM3 Mean Platelet Volume 8.2 FL Neutrophils (%) (Auto) 64.6 % Lymphocytes (%) (Auto) 23.5 % Monocytes (%) (Auto) 9.2 % Eosinophils (%) (Auto) 1.2 % Basophils (%) (Auto) 1.5 % Neutrophils # (Auto) 5.7 TH/MM3 Lymphocytes # (Auto) 2.0 TH/MM3 Monocytes # (Auto) 0.8 TH/MM3 Eosinophils # (Auto) 0.1 TH/MM3 Basophils # (Auto) 0.1 TH/MM3 CBC Comment DIFF FINAL Differential Comment Blood Urea Nitrogen 26 MG/DL Creatinine 1.20 MG/DL Random Glucose 108 MG/DL Total Protein 7.5 GM/DL Albumin 3.7 GM/DL Calcium Level 8.8 MG/DL Magnesium Level 1.8 MG/DL Alkaline Phosphatase 72 U/L Aspartate Amino Transf (AST/SGOT) 21 U/L Alanine Aminotransferase (ALT/SGPT) 21 U/L Total Bilirubin 0.5 MG/DL Sodium Level 128 MEQ/L Potassium Level 3.2 MEQ/L Chloride Level 89 MEQ/L Carbon Dioxide Level 30.6 MEQ/L Anion Gap 8 MEQ/L Estimat Glomerular Filtration Rate 43 ML/MIN Troponin I LESS THAN 0.02 NG/ML B-Type Natriuretic Peptide 32 PG/ML Thyroid Stimulating Hormone 3rd Gen 0.813 uIU/ML Urine Color YELLOW Urine Turbidity CLEAR Urine pH 7.0 Urine Specific [place] LESS/EQUAL 1.005 Urine Protein NEG mg/dL Urine Glucose (UA) NEG mg/dL Urine Ketones NEG mg/dL Urine Occult Blood TRACE Urine Nitrite NEG Urine Bilirubin NEG Urine Urobilinogen 0.2 MG/DL Urine Leukocyte Esterase NEG MDM Supervised Visit with [facility]: No Narrative Course This case is checked out to me by Dr. Pulliam at 3 PM. At 4:20 PM all the studies are complete. I have evaluated the patient. She has been developing some lightheadedness and general malaise for the last 1 week. At that point she was taken off her lisinopril and started on hydrochlorothiazide. Today she is found to be hyponatremic and hypokalemic. I believe these electrolyte abnormalities are most likely caused by her diuretic. She received a liter of normal saline IV and I gave her a replacement dose of potassium. Her chest x-ray is normal Patient cannot take hydrochlorothiazide or CHANELL inhibitor and also reports problems with calcium blockers. Therefore I am limited in choices and will start her on Lopressor. She is advised to check and record her blood pressure daily and follow-up with her primary care physician in the next 2 weeks. Her urine is clean Diagnosis Primary Impression: Hyponatremia Additional Impressions: Hypokalemia Dehydration, mild Generalized weakness Departure Forms: Tests/Procedures Additional Instruction: Stop hydrochlorothiazide Start Lopressor The patient was advised to follow up with their physician and return if they worsen. Check and record blood pressure daily Med/Other Pt SpecificInfo: Prescription(s) given Scripts Metoprolol Tartrate (Lopressor) 50 Mg Tab 25 MG PO BID, #30 TAB 0 Refills Prov: Ismael Gabriel MD 01/31/18 Disposition: 01 DISCHARGE HOME Condition: Stable Ismael Gabriel MD Jan 31, 2018 16:22
[2018-01-31 16:27] LABS: SQUAMOUS EPITHELIAL CELL URINE 0-5 /hpf (0-5)
[2018-01-31 16:36] VITALS: BP 174/81
--- NOTE | 2018-02-01 15:06 | EKG ---
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
== END 2018-01-31 16:43 | disposition home or self-care (01) ==
LOC: PHED 13:55
DX: E87.1 Hypo-osmolality and hyponatremia (principal); E87.6 Hypokalemia; E86.0 Dehydration; R53.1 Weakness; R05 Cough; I49.3 Ventricular premature depolarization; R94.31 Abnormal electrocardiogram [ECG] [EKG]; R63.4 Abnormal weight loss; I10 Essential (primary) hypertension; E07.9 Disorder of thyroid, unspecified
CPT/HCPCS: 71046; 80053; 81001; 83735; 83880; 84443; 84484; 85025; 93005; 96360; 99285; J7030